=== PATIENT | female | born 1980 | race African-American/Black ===

== ENCOUNTER 2016-12-11 04:18 | Emergency (ER) | payer MEDICARE, OTHER ==
[~2016-12-11] VITALS: Ht 170.2 cm; Wt 121.0 kg
[2016-12-11 04:26] VITALS: BP 141/86; PULSE 91; RESP 16; TEMP 98.1; O2SAT 99
[2016-12-11 05:10] VITALS: BP 141/86; PULSE 91; RESP 18; TEMP 98.1
[2016-12-11] MEDS ORDERED: SODIUM CHLORIDE 0.9% FLUSH 5 ML FLUSH IVF PRN (05:30)
[2016-12-11] MEDS ORDERED: methylPREDNISolone SOD SUCC 125 MG/2 ML VIAL IVP ONE (05:30)
[2016-12-11] MEDS ORDERED: FAMOTIDINE 20 MG/2 ML VIAL IV PUSH ONE (05:30)
[2016-12-11] MEDS ORDERED: diphenhydrAMINE HCL 50 MG/ML VIAL IVP ONE (05:30)
--- NOTE | 2016-12-11 05:52 | PD ---
HPI Chief Complaint: Pain: Acute or Chronic Time Seen by Provider: 05:20 Travel History International Travel<30 days: No Contact w/Intl Traveler<30days: No Traveled to known affect area: No History of Present Illness HPI 36-year-old female presents to the emergency department for complaint right of left flank erythema pruritus and urticaria. Symptoms began this evening prior to arrival to the emergency department. Patient did take a one-time dose of 25 mg of Benadryl with some improvement of symptoms. No lip tongue or throat swelling no generalized urticaria. Patient denies any new foods detergents linens perfumes clothing furniture or beverages. Patient states had similar episode several weeks ago that lasted on and off for 1-2 weeks and resolved spontaneously and now with recurrence. Patient is visiting from [place]. He should previously had episode when traveling to [place] and now has had an episode traveling to [place]. Patient has asthma and has had no exacerbation. PFSH Past Medical History Narrative Medical Asthma; no tobacco use; nursing notes reviewed ?: Not LMP: 11/08/16 Social History Tobacco Use: No Allergies-Medications (Allergen,Severity, Reaction): Uncoded Allergies: seroq (Allergy, Severe, 12/11/16) "suicidal" Reported Meds & Prescriptions Reported Meds & Active Scripts Active Medrol Dosepak (Methylprednisolone) 4 Mg Dspk 4 Mg PO DIRECTED Per Pharmacist direction Narrative Medication Benadryl Review of Systems Except as stated in HPI: all other systems reviewed are Neg General / Constitutional: No: Fever, Chills HENT: No: Sore Throat, Congestion Cardiovascular: No: Chest Pain or Discomfort, Syncope Respiratory: No: Shortness of Breath, Wheezing Gastrointestinal: No: Nausea, Vomiting, Abdominal Pain Genitourinary: No: Dysuria, Flank Pain Musculoskeletal: No: Myalgias, Arthralgias Skin: Positive Rash, Positive Itching, Positive Hives Neurologic: No: Weakness Psychiatric: No: Anxiety Hematologic/Lymphatic: No: Lymph Node Enlargement Physical Exam Narrative GENERAL: Well-developed well-nourished female in no acute distress no respiratory distress no stridor or hoarseness SKIN: Warm and dry. Erythematous raised confluent rash to the left upper abdominal wall/flank with some areas of excoriation no vesicles no pustules no petechia no purpura no shingles no diffuse urticaria HEAD: Normocephalic. EYES: No scleral icterus. No injection or drainage. ENT: Mucous membranes moist airway is patent no angioedema NECK: Supple, trachea midline. No JVD or lymphadenopathy. CARDIOVASCULAR: Regular rate and rhythm without murmurs, gallops, or rubs. RESPIRATORY: Breath sounds equal bilaterally. No accessory muscle use. GASTROINTESTINAL: Abdomen soft, non-tender, nondistended. MUSCULOSKELETAL: No cyanosis, or edema. BACK: Nontender without obvious deformity. No CVA tenderness. Data Data Last Documented VS Vital Signs Date Time Temp Pulse Resp B/P Pulse Ox O2 Delivery O2 Flow Rate FiO2 12/11/16 07:18 94 14 146/65 100 Room Air 12/11/16 06:30 98.4 Orders Ecg Monitoring (12/11/16 05:26) Iv Access Insert/Monitor (12/11/16 05:26) Oximetry (12/11/16 05:26) Diphenhydramine Inj (Benadryl Inj) (12/11/16 05:30) Methylprednisolone So Succ Inj (Solumedr (12/11/16 05:30) Famotidine Inj (Pepcid Inj) (12/11/16 05:30) Sodium Chloride 0.9% Flush (Ns Flush) (12/11/16 05:30) MDM Medical Decision Making Medical Screen Exam Complete: Yes Emergency Medical Condition: Yes Medical Record Reviewed: Yes Differential Diagnosis Focal allergic reaction, contact dermatitis, allergic dermatitis, allergic reaction, anaphylaxis, angioedema, cellulitis, abscess Narrative Course Patient is taking Benadryl prior to arrival to the emergency department; additional Benadryl 25 mg IV Solu-Medrol 125 mg IV and Pepcid 20 mg IV administered At 7 AM patient is clinically improved and stable for outpatient management. Patient provided prescription for Medrol Dosepak and is encouraged to continue as needed Benadryl and to take Zantac 150 twice daily for 7 days while she is trying to detect what is triggering these allergic events while traveling. Diagnosis Primary Impression: Allergic reaction Qualified Code: T78.40XA - Allergic reaction, initial encounter Referrals: Primary Care Physician call for appointment Patient Instructions: General Instructions Additional Instructions: Take Benadryl per package directions as often as every 4-6 hours as needed for rash or itching Complete course of steroid as prescribed Return to the emergency department for any concerns or change in condition Increase fluid hydration Takes Zantac 150 twice daily for 7 days Med/Other Pt SpecificInfo: Prescription(s) given Scripts Methylprednisolone Dosepak (Medrol Dosepak)4 Mg Dspk4 Mg PO DIRECTED #1 DSPK Ref 0 Per Pharmacist direction Prov:Sakshi Ivey MD 12/11/16 Disposition: 01 DISCHARGE HOME Condition: Stable Sakshi Ivey MD Dec 11, 2016 05:52
[2016-12-11] MEDS ORDERED: MEDR4PAK PO (06:20)
[2016-12-11 06:30] VITALS: BP 146/65; PULSE 89; RESP 15; TEMP 98.4
[2016-12-11 07:18] VITALS: BP 146/65; PULSE 94; RESP 14; O2SAT 100
== END 2016-12-11 07:31 | disposition home or self-care (01) ==
LOC: PHED 04:18
DX: T78.40XA Allergy, unspecified, initial encounter (principal); J45.909 Unspecified asthma, uncomplicated
CPT/HCPCS: 96374; 96375; 99283; J1200; J2930